=== PATIENT | female | born 1955 | race Caucasian/White ===

== ENCOUNTER → 2020-10-30 15:01 | Outpatient (BNVA) | payer MEDICARE, SELFPAY | PROVIDERS: Family Provider Physician Assistant Medical; PCP Physician Assistant Medical; Referring Provider Physician Assistant Medical; Visit Provider Nurse Practitioner Family | DX: N39.0 Urinary tract infection, site not specified (principal); N39.41 Urge incontinence | CPT/HCPCS: 81003 ==

== ENCOUNTER → 2021-01-30 15:38 | Outpatient (BNVA) | payer MEDICARE, SELFPAY | PROVIDERS: Family Provider Physician Assistant Medical; PCP Physician Assistant Medical; Visit Provider Urology | DX: N39.0 Urinary tract infection, site not specified (principal) | CPT/HCPCS: 81003 ==

== ENCOUNTER → 2021-07-30 13:05 | Outpatient (BNVA) | payer MEDICARE, SELFPAY | PROVIDERS: Family Provider Physician Assistant Medical; PCP Physician Assistant Medical; Visit Provider Internal Medicine | DX: I25.10 Atherosclerotic heart disease of native coronary artery without angina pectoris (principal); Z87.891 Personal history of nicotine dependence; I10 Essential (primary) hypertension | CPT/HCPCS: 99214 ==

== ENCOUNTER → 2021-07-31 15:10 | Outpatient (BNVA) | payer MEDICARE, SELFPAY | PROVIDERS: Family Provider Physician Assistant Medical; PCP Physician Assistant Medical; Visit Provider Urology | DX: N39.0 Urinary tract infection, site not specified (principal); N39.41 Urge incontinence | CPT/HCPCS: 81003 ==

== ENCOUNTER 2022-03-14 09:42 | Outpatient (CLI) | payer MEDICARE, SELFPAY ==
--- NOTE | 2022-03-14 | ECG_ITS ---
[facility] Test Date: 2022-03-14 Pat Name: Nora Leach Department: Room: Gender: Female Navigation Officer: Saumya Campuzano : 1955 Requested By: Kevin Hoover Order Number: [id number] Lydia MD: Martínez Malloy M.D. Interpretive Statements NAME OF STUDY: LEXISCAN SESTAMIBI STRESS TEST INDICATION: Shortness of Breath, PROCEDURE: At the baseline, the EKG revealed sinus bradycardia with a rate of 50 bpm nonspecific IVCD. Possible old high lateral wall VT. Poor R wave progression with a possible old anteroseptal VT. The baseline heart was 50 bpm with a blood pressue of 146/85 mm of Hg Lexiscan was infused over a period of 20 seconds. A total of 0.4 milligrams of Lexiscan was infused. The stress phase was continued for a total of 5 minutes. Heart rate at the end of the stress phase was 72 bpm with a blood pressure 140/85 mm of Hg. The EKG at the peak infusion revealed no significant changes. Sestamibi was injected 20 seconds after the Lexiscan infusion. Heart rate at the end of the recovery phase was 74 bpm with a blood pressure of 143/84 mm of Hg. CONCLUSION: 1. No significant EKG changes with the LexiScan infusion 2. No LexiScan induced chest pain or cardiac arrhythmia 3. Normal blood pressure and heart rate response 4. Sestamibi/sestamibi perfusion scan pending; see separate report. Electronically Signed On 03-15-2022 9:08:57 MARTIAL ARTS INSTRUCTOR by Martínez Malloy M.D. [id number]
[2022-03-14 09:53] VITALS: BMI 48.6
--- NOTE | 2022-03-14 10:21 | NMCV_ITS ---
NM konrad perf SPECT r/s* [id number] Nora Leach Age: 66 Gender: F : 1955 Exam Date: 03/14/2022 11:00 Ordering Phys: Kevin Hoover M.D ([email or web address]) Technologist: NICOLLE Peres Exam Location: [facility] Indications: SHORTNESS OF BREATH STRESS TEST Please see separate stress test report in [facility] for full findings IMAGE PROTOCOL Rest/Stress 1 Lexiscan Day Radiopharmaceutical Dose (mCi) Administration Site Administered by Rest: Tc-99m 9.1 IV NICOLLE Ku Sestamibi Stress:Tc-99m 27.8 IV NICOLLE Ku Sestamibi Rest: 14-Mar-2022 60 Discovery 630 Stress: 14-Mar-2022 30 Discovery 630 0.4mg Lexiscan. Supine position only as patient was unable to lay prone. SPECT RESULTS Technical Quality: Good Raw Data Analysis: Breast attenuation, Soft tissue attenuation Image Corrections: No attenuation or motion correction applied Summed Stress Score: 13 Summed Rest Score: 6 Summed Difference Score: 8 PERFUSION FINDINGS Small sized perfusion abnormality of mid inferolateral and apical johns on rest images with reversibility in mid to apical inferior wall, mid to apical infero- lateral johns, apical septal and apical johns on stress images. FUNCTIONAL RESULTS (calculated via Gated SPECT) Stress Image LV EF (%): 54 Stress EDV (mL):133 TID: 1.09 Stress ESV (mL):61 FUNCTIONAL FINDINGS: The left ventricle is normal in size. Transient Ischemia Dilatation of 1.1. The left ventricular ejection fraction is normal with a value of 54%. There seems to be hypokinesis in mid to apical inferior and lateral johns. IMPRESSIONS 1. Medium sized partially reversible perfusion abnormality of mid to apical inferior wall, mid to apical infero-lateral johns, apical septal and apical johns. 2. This likely represents medium sized area of ischemia in right coronary and circumflex artery territory. 3. The left ventricular ejection fraction is normal with a value of 54%. 4. There seems to be hypokinesis in mid to apical inferior and lateral johns. 5. EKG portion of the study will be reported separately. Claire Frankel MD (Electronically Signed) Final Date: 17 March 2022 11:51 S
[2022-03-14 12:15] VITALS: BP 143/84; PULSE 74
[2022-03-14] MEDS: regadenoson 0.4 Mg/5 ml Syringe IVP (13:04)
== END 2022-03-14 09:43 | disposition home or self-care (01) ==
PROVIDERS: PCP Registered Nurse; Visit Provider Internal Medicine
DX: R06.02 Shortness of breath (principal); I25.9 Chronic ischemic heart disease, unspecified
CPT/HCPCS: 36415; 78452; 93017; A9500; J2785

== ENCOUNTER 2022-03-21 14:39 | Outpatient (CLI) | payer MEDICARE, SELFPAY ==
--- NOTE | 2022-03-21 14:47 | MM_ITS ---
WS: [id number] VIEWS: MLO and CC views both breasts. 3D digital tomosynthesis is also included in this exam. Comparison made with prior exam of 08/24/2015, 11/06/2016, 11/06/2017, 11/24/2018, 11/05/2019, 12/07/2020.. Findings: There was no sign of mass, architectural distortion or suspicious calcification in either breast. Fa [place]ty MM/[place] [id number] Impression: BI-RADS: 2-Benign FOLLOW-UP: 1 Year Follow-up This mammogram was also analyzed by the Computer Aided Detection System R2 Imag e Managed Care Specialist.
== END 2022-03-21 14:40 | disposition home or self-care (01) ==
PROVIDERS: PCP Registered Nurse; Visit Provider Registered Nurse
DX: Z12.31 Encounter for screening mammogram for malignant neoplasm of breast (principal)
CPT/HCPCS: 77063; 77067

== ENCOUNTER 2022-04-15 09:45 | Outpatient (CLI) | payer MEDICARE, SELFPAY ==
[2022-04-15 10:57] LABS: Basophils % 0.8 %; Eosinophils # 0.2 10^3/uL (0.0-0.8); Eosinophils % 4.4 %; Hematocrit 38.5 % (37.0-47.0); Hemoglobin 12.5 g/dL (11.5-15.3); Lymphocytes # 1.5 10^3/uL (0.8-4.8); Mean Corpuscular HGB Conc 32.5 g/dL (30.0-36.0); Mean Corpuscular Hemoglobin 29.9 pg (28.0-34.0); Mean Corpuscular Volume 92.1 fl (81-99); Mean Platelet Volume 10.3 fL (7.4-10.4); Monocytes # 0.4 10^3/uL (0.2-0.9); Monocytes % 9.6 %; Neutrophils # 1.82 10^3/uL (1.8-7.7); Neutrophils % 46.9 %; Nucleated Red Blood Cells % 0 %; Platelet Count 139 10^3/cmm (130-400); Red Blood Count 4.18 10^6/uL (4.1-5.3); Red Cell Distribution Width 13.9 % (12.1-15.1); White Blood Count 3.9 10^3/uL (4.0-10.0)
[2022-04-15 11:15] LABS: INR 0.99 (0.83-1.21); Prothrombin Time (Patient) 13.4 Seconds (12.0-15.1)
[2022-04-15 11:18] LABS: Anion Gap 12.7 (5-19); Blood Urea Nitrogen 20 mg/dL (8-23); Calcium 8.8 mg/dL (8.5-10.5); Carbon Dioxide 28 mmol/L (22-29); Chloride 100 mmol/L (98-107); Glucose 98 mg/dL (65-115); Osmolality Calculated 287 mOsm/kg (285-295); Potassium 3.7 mmol/L (3.5-5.1); Sodium 137 mmol/L (136-145)
== END 2022-04-15 09:46 | disposition home or self-care (01) ==
PROVIDERS: PCP Registered Nurse; Visit Provider Internal Medicine
DX: I10 Essential (primary) hypertension (principal); R58 Hemorrhage, not elsewhere classified
CPT/HCPCS: 36415; 80048; 85025; 85610

== ENCOUNTER 2022-04-17 06:06 | Outpatient (CLI) | payer MEDICARE, SELFPAY ==
[2022-04-17] VITALS (18 sets, daily range): BP systolic 111–185; BP diastolic 59–90; PULSE 51–67; RESP 14–21; TEMP 36.6; O2SAT 94–100; BMI 45.1
[2022-04-17] MEDS: diphenhydrAMINE 50 mg Capsule PO (06:40)
--- NOTE | 2022-04-17 07:00 | XACV_ITS ---
Exam Room: 2 Ht: 160 cm Wt: 116 kg BSA: 2.34 m2 Gender: Female : 1955 Any Known Allergies: Other Exam Priority: Routine Procedure(s): Procedure Description: Diagnostic procedure Procedure Description: Left Heart Catheterization Procedure Description: Left ventriculography Procedure Description: Coronary Angiography Diagnostic Cath Status: Elective Diagnostic Findings * INDICATION: 66-year-old woman with past medical history hypertension was undergoing preop clearance for surgery. Has dyspnea on exertion. Stress test was performed that shows area of ischemia in the RCA and left circumflex artery territory. In the past she has mentioned bilateral arm discomfort. No ongoing chest pains. * No significant disease noted in the Left Main, Left Anterior Descending, Right, or Circumflex coronary arteries. * Coronary angiography shows right dominance. Conclusions 1. No significant disease noted in the Left Main, Left Anterior Descending, Right, or Circumflex coronary arteries. Recommendations * Aggressive risk factor modification. * Outpatient cardiology follow up in 4 weeks. Interventional RX Recommendation: medical therapy and/or counseling Diagnostic RX Recommendation: medical therapy and/or counseling Anticoagulation: Heparin Pressures Phase:Rest AO : 167 / 81 ( 110 ) @ 8:10:00 AM 168 / 79 ( 111 ) @ 8:10:00 AM LV : 153 / 6 / 28 @ 8:10:00 AM 149 / 3 / 23 @ 8:10:00 AM Valves Phase:DefaultPhase AV : 0.0 @ 8:26:53 AM AV Mean Gradient: 0.0 @ 8:26:53 AM Clinical Evaluation EBL: 5mL-10mL Procedural Details Procedure Consent Obtained. Admit Source: Out Patient. Pre-Procedure Time Out. Identified patient by full name and date of as verbalized by the patient/guarantor. Does the consent match the physician's order: Yes. Accurate & Complete Informed Consent: Yes. Inpatient/Outpatient History & Physical on Chart: Yes. If H&P is completed, is and addenduem needed: No; If yes, is the addendum complete: N/A. Visualize and Verify Site with Patient/Guarantor: N/A. Relevant Radiology Images available: N/A. The risks, benefits, and alternatives of sedation and/or procedure were discussed by physician. The patient agrees to continue. Procedure started. [facility] Clinical Fraility Score: 3: Managing Well. Day Care Supervisor Indications: abnormal stress test and preop clearance. Chest Pain Symptom Assessment: Asymptomatic. Cardiovascular Instability: No,. Correct patient, site and procedure confirmed by cath team. PERRLA. Strong, equal hand sales representative public [employer] bilaterally. Lungs clear x 5 lobes. IV Site on Arrival: 20 gauge in the left anticubital. IV Fluids: 0.9% NaCl at KVO. 0 mL infused prior to freezer laboratory technician. Pre Procedural Pulses: bilateral radial was 3+. Pre Procedural Pulses: bilateral dorsalis pedis was Doppled. Pre Procedural Pulses: bilateral posterior tibial was Doppled. Oxygen started at 2liters/min via nasal canula. right groin was prepped with chloroprep then draped in the usual sterile fashion. right radial was prepped with chloroprep then draped in the usual sterile fashion. Baseline sample Acquired. HR: 54 BPM. Physician notified. Physician arrived. Physician scrubbed in. Immediate Pre-Procedure Time Out. Correct Patient: Yes; Correct Procedure: Yes; Correct Site: Yes; Correct Patient Position: Yes; Correct Supplies: Yes; Dried Flammable Prep: Yes; Blood Products Available: N/A;. Ultrasound in room requested by physician for access assist. Lidocaine 1% infiltrated to the right radial. Arterial access obtained. A 5 slovenian TIG catheter in over wire. EDP Sample taken: LV 153/6,28; HR: 47 BPM; SpO2: 97%. Pullback taken: LV 149/3,23; AO 167/81(110); Mean: 0mmHg, Peak to Peak: 0mmHg, SEP: 4sec/min; HR: 50 BPM; SpO2: 97%. Multiple views taken of left coronary artery. Catheter redirected to the RCA. Multiple views taken of right coronary artery. Catheter removed over the exchange wire. A TR Band was successful obtaining hemostatsis at the Right Radial artery insertion site. Post Procedure: Pulses reassessed and unchanged. PERRLA. Strong, equal hand sales representative [employer] bilaterally. No VTE prophylaxis required. Medication's Wasted: Lidocaine 1% = 1 mL. Medication's Wasted: Nitro = 49.8 mg. Medication's Wasted: Heparin = 1000 units. Medication's Wasted: Other = versed 1 mg. Medication's Wasted: Other = fentanyl 50 mcg. Total IV fluids: 24 mL. Post-op diagnosis: non obstructive CAD. Complications: none. Estimated blood loss: 5mL-10mL. Responsiveness - Normal response to verbal stimuli; alert and oriented, PERRLA. Airway - Unaffected, no intervention required; spontaneous ventilation. Circulation: W/N/L, pulses unchanged. Nausea/Vomiting: No. Procedure completed. Patient transferred by bed to CPRU. Access Site Site: Right Radial artery Sheath Size: 6 Fr Hemostasis Method: TR Band Hemostasis Success: Successful Procedure Medications Start: 8:00 AM Stop: 8:00 AM Medication: Versed Amount: 1 mg Route: I.V. Start: 8:00 AM Stop: 8:00 AM Medication: Fentanyl Amount: 50 mcg Route: I.V. Start: 8:07 AM Stop: 8:07 AM Medication: Nitrogylcerin Amount: 200 mcg Route: I.A. Start: 8:09 AM Stop: 8:09 AM Medication: Heparin Amount: 5000 units Route: I.V. I, the attending physician, have reviewed and verified all procedure medications. Yes, all medications given per verbal order History/Risk Factors Hypertension: Yes Dyslipidemia: No Peripheral Arterial Disease (PAD): No Myocardial Infarction (TX): No Obesity: Yes Tobacco Use: Former Prior Interventions PCI: No CABG: No Valve Surgery: No Report Signatures Finalized by Kevin Hoover MD on 04/28/2022 11:39 AM
--- NOTE | 2022-04-17 07:48 | P.HP_ITS ---
Same Day Surgery H&P Indication for Procedure/HPI DATE OF PROCEDURE: April 17, 2022 CHIEF COMPLAINT/INDICATIONFOR SURGICAL PROCEDURE: Abnormal stress test/ Pre-op clearance PREOP DIAGNOSIS: Abnormal stress test/ Pre-op clearance PLANNED PROCEDURE: Operation Date: 04/17/22 07:00 Proposed Procedures p Left Cardiac Catheterization 39469 R94.39,R07.9,R06.02(Left) - Kevin Hoover M.D Possible percutaneous coronary intervention 66-year-old woman with past medical history hypertension was undergoing preop clearance for surgery. Stress test was performed that shows area of ischemia in the RCA and left circumflex artery territory. In the past she has mentioned bilateral arm discomfort. No ongoing chest pains. Medications/Allergies* Home Medications Medication Instructions Recorded Confirmed Type aspirin 325 mg tablet 325 mg PO DAILY 05/18/19 04/17/22 History baclofen 10 mg tablet 10 mg PO BID 05/18/19 04/17/22 History hydrochlorothiazide 25 mg tablet 25 mg PO QAM 05/18/19 04/17/22 History potassium chloride 10 mEq 10 meq PO TID 05/18/19 04/17/22 History tablet,extended release (Klor-Con) geriatric sxciulvs-kwgs-dlxa 1 tab PO DAILY 05/19/19 04/17/22 History metoprolol tartrate 25 mg tablet 50 mg PO DAILY 05/19/19 04/17/22 History ascorbic acid (vitamin C) 500 mg 500 mg PO DAILY 10/30/20 04/17/22 History capsule cranberry extract-vitamin C 250 1 cap PO BID 01/30/21 04/17/22 History mg-60 mg capsule (Azo Cranberry Plus Vit C) Allergies/Adverse Reactions Allergy/AdvReac Type Severity Reaction Status Date / Time adhesive tape Allergy Unknown Unknown Verified 04/17/22 07:07 Penicillins Allergy Unknown Unknown Verified 04/17/22 07:07 Current Medications: Generic Name Dose Route Start Last Admin Trade Name Freq PRN Reason Stop Dose Admin Sodium Chloride 1,000 mls @ 50 mls/hr 04/17/22 06:00 04/17/22 06:50 Sodium Chloride 0.9% IV 04/18/22 01:59 Not Given .Q20H ONE Pertinent History/Comorbid Conditions* Medical History (Updated 10/30/20 @ 16:58 by Chastity Tillman APRN) NAZANIN inhibitor intolerance Cough ASHD (arteriosclerotic heart disease) Cholelithiasis Chronic back pain Chronic UTI Essential hypertension Glucose intolerance Obesity Pleural effusion Recurrent UTI Urgency incontinence Surgical History (Updated 05/19/19 @ 13:31 by Jerrod Soto MD) History of section, classical Previous back surgery S/P gastric bypass Family History (Updated 07/31/21 @ 15:34 by Deanna Diaz LPN) Father, at age 76 Mother, at age 47 Blood clot associated with vein wall inflammation Mother CAD (coronary artery disease) Father Stroke Father Social History Smoking and tobacco status: former smoker Alcohol intake: never Household members: spouse Marital status: Current occupational status: disabled History of recent travel: No Current gender identity: Female Pertinent Exam Findings alert, oriented x 3, clear to auscultation bilaterally and regular rate & rhythm Conscious Sedation Assessment PATIENT ASSESSED PRIOR TO SEDATION, WITH NO CHANGE NOTED: Yes AIRWAY EVAL/ANESTHESIA PLAN: normal airway, see other exam findings, ASA III, Local Anesthesia, Risks, benefits & alternatives of sedation and/or procedure discussed and Patient agrees to continue as planned Recommendations Surgery/Procedure today (Left heart cath with possible percutaneous coronary intervention) Coding Level of Care Code Acute Assistant Office Manager for Basia Reddy
--- NOTE | 2022-04-17 08:32 | SUR.PHASEII ---
RECOVERY NOTE Received from labor specialist. Status post cardiac catheterization via the right radial approach. Family at bedside with MD updating findings. Vital Signs and Cath assessments per flowsheet. Verbal post cath instructions given. Informed to call for needs.
--- NOTE | 2022-04-17 09:00 | SUR.PHASEII ---
POST CATH FLUIDS IV fluids off. IV is PIID as per orders.
--- NOTE | 2022-04-17 09:46 | SUR.PHASEII ---
TR BAND Band deflation began.
--- NOTE | 2022-04-17 11:23 | SUR.PHASEII ---
TR BAND REMOVAL Band Deflated and removed. No change in assessment.
== END 2022-04-17 12:32 | disposition home or self-care (01) ==
PROVIDERS: PCP Registered Nurse; Visit Provider Internal Medicine
DX: R94.39 Abnormal result of other cardiovascular function study (principal); I10 Essential (primary) hypertension; R06.00 Dyspnea, unspecified; E66.9 Obesity, unspecified; Z68.42 Body mass index [BMI] 45.0-49.9, adult; Z87.891 Personal history of nicotine dependence; I25.10 Atherosclerotic heart disease of native coronary artery without angina pectoris; Z95.1 Presence of aortocoronary bypass graft
CPT/HCPCS: 36415; 93458; 96361; 96365; 99152; 99153; C1769; C1887; C1894; J0461; J1644; J2250; J3010; J3490; J7030; Q0163; Q9967

== ENCOUNTER → 2022-05-08 14:00 | Outpatient (BNVA) | payer MEDICARE, SELFPAY | PROVIDERS: PCP Registered Nurse; Visit Provider Nurse Practitioner Family | DX: I10 Essential (primary) hypertension (principal); I25.10 Atherosclerotic heart disease of native coronary artery without angina pectoris; Z87.891 Personal history of nicotine dependence | CPT/HCPCS: 80048; 99214 ==

== ENCOUNTER → 2022-08-06 15:09 | Outpatient (BNVA) | payer MEDICARE, SELFPAY | PROVIDERS: PCP Registered Nurse; Visit Provider Urology | DX: N39.41 Urge incontinence (principal); N39.0 Urinary tract infection, site not specified | CPT/HCPCS: 81003; 99213 ==

== ENCOUNTER → 2022-09-11 15:33 | Outpatient (BNVA) | payer MEDICARE, SELFPAY | PROVIDERS: PCP Registered Nurse; Visit Provider Internal Medicine | DX: I10 Essential (primary) hypertension (principal); E66.9 Obesity, unspecified; Z68.42 Body mass index [BMI] 45.0-49.9, adult; Z87.891 Personal history of nicotine dependence | CPT/HCPCS: 99214 ==

== ENCOUNTER 2023-06-09 14:59 | Outpatient (CLI) | payer MEDICARE, SELFPAY ==
--- NOTE | 2023-06-09 15:04 | MM_ITS ---
WS: [id number] BILATERAL SCREENING DIGITAL TOMOSYNTHESIS MAMMOGRAM WITH CAD HISTORY: SCREENING COMPARISON: 03/21/2022 and 12/07/2020 Bilateral CC and MLO views with tomosynthesis and synthetic mammography submitted. Computer aided det ection analyzed. Limited by patient's clinical condition. Neither pectoralis muscle well included. Breast composition: There are scattered areas of fibroglandular density. No suspicious masses, microc alcifications or architectural distortion. Scattered benign calcifications. IMPRESSION: MM/[place] [id number] BI-RADS: 2-Benign FOLLOW UP: 1 Year Follow-up
== END 2023-06-09 15:00 | disposition home or self-care (01) ==
LOC: RAD 14:59
PROVIDERS: PCP Registered Nurse; Visit Provider Family Medicine
DX: Z12.31 Encounter for screening mammogram for malignant neoplasm of breast (principal); R92.323 Mammographic fibroglandular density, bilateral breasts; R92.1 Mammographic calcification found on diagnostic imaging of breast
CPT/HCPCS: 77063; 77067

== ENCOUNTER → 2024-02-03 13:08 | Outpatient (BNVA) | payer MEDICARE, SELFPAY | PROVIDERS: PCP Registered Nurse; Visit Provider Internal Medicine | DX: I10 Essential (primary) hypertension (principal); E66.9 Obesity, unspecified; Z68.37 Body mass index [BMI] 37.0-37.9, adult | CPT/HCPCS: 99214 ==

== ENCOUNTER 2024-07-12 15:21 | Outpatient (CLI) | payer MEDICARE, SELFPAY ==
--- NOTE | 2024-07-12 15:23 | MM_ITS ---
WS: [id number] BILATERAL 3D TOMOSYNTHESIS DIGITAL SCREENING MAMMOGRAPHY WITH CAD CLINICAL INFORMATION: SCREENING HISTORY: Screening mammogram. No current complaints. COMPARISON: 06/09/2023 TECHNIQUE: Bilateral CC and MLO views. FINDINGS: Scattered fibroglandular densities bilaterally. No suspicious focal mass, asymmetry, calcifications, or architectural distortion. No evidence of malignancy. Scattered diffuse tiny punctate calcifications similar to previous. MM/MM scr tomosynthesis [id number] IMPRESSION: DENSITY: There are scattered areas of fibroglandular density. BI-RADS: 2 - Benign. FOLLOW UP: 1 Year Follow-up Recommend return to annual screening mammography.
== END 2024-07-12 15:22 | disposition home or self-care (01) ==
LOC: RAD 15:22
PROVIDERS: PCP Family Medicine; Visit Provider Family Medicine
DX: Z12.31 Encounter for screening mammogram for malignant neoplasm of breast (principal); R92.323 Mammographic fibroglandular density, bilateral breasts; R92.1 Mammographic calcification found on diagnostic imaging of breast
CPT/HCPCS: 77063; 77067

== ENCOUNTER 2024-09-14 09:48 | Outpatient (RCR) | payer MEDICARE, SELFPAY | END 2024-10-02 23:59 | disposition home or self-care (01) | LOC: SPT 09:48 | DX: E66.01 Morbid (severe) obesity due to excess calories (principal); R26.81 Unsteadiness on feet; R53.81 Other malaise | CPT/HCPCS: 97161 ==

== ENCOUNTER → 2025-04-18 14:17 | Outpatient (BNVA) | payer MEDICARE, SELFPAY | PROVIDERS: PCP Family Medicine; Visit Provider Internal Medicine | DX: I10 Essential (primary) hypertension (principal); Z87.891 Personal history of nicotine dependence | CPT/HCPCS: 99213 ==